=== PATIENT | female | born 1930 | race Caucasian/White ===

== ENCOUNTER 2017-01-28 12:09 | Inpatient (IN) | payer MEDICARE, OTHER ==
[2017-01-28] VITALS (15 sets, daily range): BP systolic 111–147; BP diastolic 69–84; PULSE 70–78; RESP 16–28; Ht 165.1 cm; Wt 68.4 kg
[~2017-01-28] VITALS: Ht 165.1 cm; Wt 68.4 kg
--- NOTE | 2017-01-28 12:18 | ERA ---
ER Documentation Chief Complaint Date/Time DATE: 01/28/17 TIME: 12:14 Chief Complaint HPI 86-year-old female, history of hypertension resents the ED via rescue ambulance complaining of chest pain as a code STEMI. Patient complaining of acute onset of pressure-like epigastric/substernal, nonradiating chest pain at 5 AM this morning with nausea and vomiting but no shortness of breath or diaphoresis. No relieving or exacerbating factors. Denies headache, visual changes, neck or back pain. No URI symptoms or cough. No fevers or chills. ROS All systems reviewed and are negative except as per history of present illness. Allergies Allergies: Coded Allergies: Penicillins (Verified Allergy, Unknown, 01/28/17) SWELLING PMhx/Soc Reviewed in chart. As per HPI. History of Surgery: No Anesthesia Reaction: No Hx 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 Disorder: No Hx Respiratory Disorders: No Hx Cardiac Disorders: Yes (Hypertension) Hx Psychiatric Problems: No Hx Miscellaneous Medical Probl: No Hx Alcohol Use: No Hx Substance Use: No Hx Tobacco Use: No FmHx No sudden cardiac or stroke Physical Exam Vitals Vital Signs Date Time Temp Pulse Resp B/P Pulse Ox O2 Delivery O2 Flow Rate FiO2 01/28/17 12:13 97.9 82 19 139/76 100 01/28/17 12:13 Nasal Cannula 2 Physical Exam Const: Alert, moderate to severe distress Head: Atraumatic Eyes: Normal Conjunctiva ENT: Normal External Ears, Nose and Mouth. Neck: Full range of motion.Nontender. No JVD. Resp: Clear to auscultation bilaterally Cardio: Regular rate and rhythm, no murmurs. No chest wall tenderness Abd: Soft, non tender, non distended. Normal bowel sounds Skin: No petechiae or rashes Back: No midline or flank tenderness Ext: No cyanosis, or edema Neur: Awake and alert. No focal deficit Psych: Normal Mood and Affect Result Diagram: 01/28/17 1215 01/28/17 1215 Results 24 hrs Laboratory Tests Test 01/28/17 12:15 White Blood Count 10.010^3/ul Red Blood Count 4.4310^6/ul Hemoglobin 13.3g/dl Hematocrit 40.7% Mean Corpuscular Volume 91.9fl Mean Corpuscular Hemoglobin 30.0pg Mean Corpuscular Hemoglobin Concent 32.7g/dl Red Cell Distribution Width 13.2% Platelet Count 92398^3/UL Mean Platelet Volume 10.2fl Neutrophils % 81.3% Lymphocytes % 13.6% Monocytes % 3.9% Eosinophils % 0.2% Basophils % 0.2% Nucleated Red Blood Cells % 0.0/100WBC Neutrophils # (Manual) 8.210^3/ul Lymphocytes # 1.410^3/ul Monocytes # 0.410^3/ul Eosinophils # 0.010^3/ul Basophils # 0.010^3/ul Nucleated Red Blood Cells # 0.010^3/ul Prothrombin Time 12.1Sec Prothrombin Time Ratio 0.9 INR International Normalized Ratio 0.90 Activated Partial Thromboplast Time 24.1Sec Sodium Level 137mmol/L Potassium Level 4.2mmol/L Chloride Level 105mmol/L Carbon Dioxide Level 21mmol/L Anion Gap 15 Blood Urea Nitrogen 17mg/dl Creatinine 0.88mg/dl Glucose Level 228mg/dl Hemoglobin A1c 6.9% Calcium Level 8.6mg/dl Creatine Kinase 259IU/L Creatine Kinase Index 5.1 Creatinine Kinase MB (Mass) 13.10ng/ml Troponin I 0.910ng/ml Triglycerides Level 172mg/dl Cholesterol Level 175mg/dl LDL Cholesterol, Calculated 94mg/dl HDL Cholesterol 47mg/dl Cholesterol/HDL Ratio 3.7RATIO EKG: Time: 12:07. Accelerated junctional rhythm. Ventricular rate 91. Normal NC QRS. ST segment elevations in leads II, III and aVF with reciprocal depressions in leads V1 through V4. No ectopy. EP Interpretation: Acute inferior ST segment elevation myocardial infarction. Procedures/MDM DOCUMENTS REVIEWED: ED nurse, EMS MEDICAL DECISION MAKIN-year-old female, history of hypertension resents the ED via rescue ambulance complaining of chest pain as a code STEMI. Prehospital EKG transmitted and reveals inferior ST segment elevations with reciprocal anterior depressions consistent with an acute ST segment elevation myocardial infarction. Code STEMI protocol initiated at 11:59. Case discussed with cardiology, 12:03. Repeat EKG in the emergency department confirms changes consistent with a acute inferior wall ST segment elevation myocardial infarction. Pulses equal in all pulses equal all extremities and doubt aortic dissection or pulmonary embolism. 12:10. at bedside. Patient transported to the cardiac Ballistics Expert Forensic at 12:25 for emergent PCI and post procedure will be admitted to ICU. Counseled patient and family regarding diagnosis, diagnostic results and plan for admission. Critical Care Time: 35 minutes Treatments/Evaluations: Close monitoring and treatment of unstable vital signs, cardiorespiratory, and neurologic status, while maintaining tight balance of fluid, respiratory, and cardiac interventions. This time includes discussing the case with the patient and the patient's family. This time does not include all procedures stated elsewhere in this record. This time also includesInterpretation of relevant clinical data including labs and imaging studies. This time includes examining and re-examining the patient. Additionally , this time also includes arranging care with Dig[facility] and admitting physician. CALLS/CONSULTS: Time 12:00, Dr. Mccain. CALLS/CONSULTS: Time 12:25, Dr. Tiwari. PATIENT CARE TRANSITIONED: Time: . Dr Tiwari. Departure Diagnosis: Primary Impression: Chest pain Qualified Code: R07.9 - Chest pain, unspecified type Additional Impression: ST elevation myocardial infarction (STEMI) Qualified Code: I21.11 - ST elevation myocardial infarction involving right coronary artery Condition: Critical JAKE BIGGS MD Jan 28, 2017 12:18
--- NOTE | 2017-01-28 12:24 | CONS ---
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 HTN, HL, who presented with chest pain which began at 5am today but has been on and off for 2 days per the daughter. She was found to have an inferior STEMI by EKG in the field and was urgently brought to [facility] for cardiac cath. The pt is having active chest pain. No bleeding issues in the past. Family is agreeable. per HPI Past Medical History per HPI Exam/Review of Systems Vital Signs Vitals Vital Signs Date Time Temp Pulse Resp B/P Pulse Ox O2 Delivery O2 Flow Rate FiO2 01/28/17 12:13 97.9 82 19 139/76 100 Exam Constitutional: alert, distress (moderate from chest pain ) Psych: anxiety Head: atraumatic, normocephalic Neck: jvd (8cm) Respiratory: crackles/rales, No clear to auscultation Cardiovascular: regular rate and rhythm, No edema, No systolic murmur Gastrointestinal: non-tender, soft 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: nl mental status, nl speech Results EKG: sinus, inferior STEMI with reciprocal inferolateral ST depression KOBE WHITESIDE Jan 28, 2017 12:24
[2017-01-28 12:25] LABS: BASOPHILS % 0.2 % (0.0-2.0); EOSINOPHILS % 0.2 % (0.0-7.0); HEMATOCRIT 40.7 % (37.0-47.0); HEMOGLOBIN 13.3 g/dl (12.0-16.0); LYMPHOCYTES # 1.4 10^3/ul (0.8-2.9); LYMPHOCYTES % 13.6 % (15.0-51.0); MEAN CORPUSCULAR HGB CONC 32.7 g/dl (32.0-37.0); MEAN CORPUSCULAR VOLUME 91.9 fl (82.0-101.0); MEAN PLATELET VOLUME 10.2 fl (7.4-10.4); MONOCYTE # 0.4 10^3/ul (0.3-0.9); MONOCYTES % 3.9 % (0.0-11.0); NEUTROPHILS % 81.3 % (39.0-77.0); PLATELET COUNT 250 10^3/UL (140-415); RED BLOOD COUNT 4.43 10^6/ul (4.20-5.40); RED CELL DISTRIBUTION WIDTH 13.2 % (11.5-14.5)
[2017-01-28] MEDS ORDERED: HEPARIN 1000 UNITS/NS (A-LINE) 1,000 ML ONE (12:26)
[2017-01-28] MEDS ORDERED: LIDOCAINE 1% (MDV) 20 ML INJ ONE (12:26)
[2017-01-28 12:34] LABS: INR 0.9; PROTIME 12.1 Sec (12.2-14.2); PT RATIO 0.9
[2017-01-28 12:35] LABS: PARTIAL THROMBOPLASTIN TIME 24.1 Sec (25.0-35.0)
[2017-01-28 12:36] LABS: CALCIUM 8.6 mg/dl (8.4-10.2); CREATININE 0.88 mg/dl (0.44-1.00); POTASSIUM 4.2 mmol/L (3.5-5.1)
[2017-01-28] MEDS ORDERED: CLOPIDOGREL 300 MG TAB ONE (12:41)
--- NOTE | 2017-01-28 12:42 | RADRPT ---
PROCEDURE: XR Chest. CLINICAL INDICATION: Chest pain. TECHNIQUE: Anterior chest x-ray. COMPARISON: None. FINDINGS: Pacer paddles overlie the chest. The lungs are clear. No pleural effusion identified. There is no evidence of pneumothorax. There is atherosclerotic calcification of the aorta. The cardiomediastinal silhouette is otherwise u nremarkable. The soft tissues are normal. Osseous structures are unremarkable. IMPRESSION: 1. No acute disease is seen in the chest. 2. Atherosclerotic calcification of the aorta. RPTAT: QQ .Rahul Capps MD, Date Time Electronically viewed and signed by .Rahul Capps MD, on 01/28/2017 12:41 .M/
[2017-01-28] MEDS ORDERED: MIDAZOLAM 1 MG/ML 2 ML INJ ONE (12:43)
[2017-01-28 12:50] LABS: TROPONIN-I 0.854 ng/ml (0.00-0.12)
[2017-01-28] MEDS ORDERED: NITROGLYCERIN (IC) 100 MCG/ML INJ ONE (12:59)
[2017-01-28 13:02] LABS: CK-MB 13.1 ng/ml (0.0-2.4)
[2017-01-28 13:03] LABS: TROPONIN-I 0.91 ng/ml (0.00-0.12)
[2017-01-28] MEDS ORDERED: VERAPAMIL 5 MG INJ ONE (13:05)
[2017-01-28] MEDS ORDERED: BIVALIRUDIN 250MG /NS 50 ML 50 ML IVPB ONE ×2 (13:20→14:01)
[2017-01-28] MEDS ORDERED: FENTAnyl 50 MCG/ML VIAL ONE (13:20)
[2017-01-28] MEDS ORDERED: EPTIFIBATIDE 20 ML ONE (13:20)
[2017-01-28] MEDS ORDERED: EPTIFIBATIDE 100 ML IV ONE (13:20)
[2017-01-28] MEDS: HOLD all METFORMIN and METFORMIN CONTAINING medications for 48 hours post procedure. Chec XX SCH (13:30)
[2017-01-28] MEDS ORDERED: morphine 2 MG INJ IV PRN (13:30)
--- NOTE | 2017-01-28 13:45 | OPR ---
Date/Time of Note Date/Time of Note DATE: 01/28/17 TIME: 13:31 Operative Report Free Text/Dictation Procedure Date: 01/28/2017 Procedures Performed: 1)Left heart catheterization with selective left and right coronary angiography. 2)Balloon angioplasty and stenting of the mid and proximal RCA. Pre-operative Diagnosis:inferior STEMI Post-operative Diagnosis:smae s/p PCI of RCA Indications: 86 yo F with a h/o DM, HTN, HL, presenting with 7 hours of chest pain and was found to have an inferior STEMI. Description of Procedure: Due to the emergent nature of the procedure consent could not be obtained. The patient was brought to the cardiac catheterization lab. The procedure site was prepped and draped in usual manner. The patient was premedicated with versed 1 mg and . 5 mL lidocaine was injected into the right groin. Next using the Seldinger technique, the 6 indian sheath was inserted into the right femoral artery. Next using the JL4 and JR4 guide, selective angiography of the left and right coronary arteries were obtained. The decision was made to proceed with PCI of the RCA as this was the culprit lesion. A 6 indian guide was advanced and engaged into the right coronary artery. After appropriate anticoagulation and antiplatelets were given, the PT 2 LS angioplasty wire was advanced past the lesion (unsuccessful with BMW). Next the 2.0 X 12 balloon was used to dilate the lesion times 2 but there was a more distal lesion noted and so this was also dilated to establish ABRAHAM 3 flow. Distal slow flow was noted due to thrombus. The pt was having bradycardia and hypotension and was given IVF and started on dopamine. Subsequently, the [place] 2.75 x 15 stent was advanced to the more distal lesion and deployed at nominal pressure. The balloon was used to dilate the proximal lesion again. Then the Eleazar 2.75 x 18 stent was advanced to the proximal lesion and deployed at nominal pressure. Repeat angiography revealed ABRAHAM 2 flow from distal embolization. Integrilin was started. Next IC NTG and verapamil were given and repeat angiography revealed ABRAHAM 3 flow to the PDA and ABRAHAM 2 flow in the mid to distal PLV due to residual microvascular thrombus. At this point the decision was made to avoid post dilation to not worsen distal embolization. The pt was asymptomatic, had resolution of her ST elevation and had good distal vessel flow. Next all equipment was removed and hemostasis was achieved by Perclose after verifying common femoral insertion of the sheath. Findings: Anatomy/Hemodynamics: Left main: normal LAD: luminal irregularities with distal 100% HUMAN RESOURCES CLERK and left-left collaterals ( will be treated medically) Diagonal:luminal irregularities Circumflex:luminal irregularities Obtuse marginal: small vessel with prox 80% (will be treated medically) RCA: prox 100% (after the proximal lesion was dilated, there was also a mid 100% ) LV angiography:not done Contrast used: 75 mL Fluoroscopy time:6.4 min Medications used: Versed 1mg Fentanyl 25 Angiomax bolus plus drip given ASA in ED plavix 600 mg intergrilin bolus and drip dopamine IC NTG and verapamil Equipment used: 6 indian JR4 guide PT 2 LS angioplasty wire 2 x 12 balloon Eleazar 2.75 x 15 drug eluting stent (mid) Eleazar 2.75 x 18 drug eluting stent (proximal) Assessment: Inferior STEMI s/p PCI of occluded prox RCA and mid RCA Distal microembolization with good final results but ABRAHAM 2 flow to distal PLV for which pt will be maintained on integrilin Residual distal LAD HUMAN RESOURCES CLERK and small vessel disease of the OM which will be treated medically Hypotension/bradycardia: secondary to reestablishing RCA flow Plan: -transfer to ICU for observation overnight -wean off dopamine drip -angiomax x 4 hours -integrilin x 8 hours -ASA indefinitely -plavix 75mg daily for 1 year -KOBE Garcia Jan 28, 2017 13:45
[2017-01-28] MEDS ORDERED: ONDANSETRON 4 MG INJ ONE (13:55)
[2017-01-28] MEDS ORDERED: ONDANSETRON 4 MG INJ IV PRN (14:00)
[2017-01-28] MEDS ORDERED: BIVALIRUDIN 250MG /NS 50 ML 50 ML IV SCH (15:00)
[2017-01-28] MEDS ORDERED: EPTIFIBATIDE 100 ML IV SCH (15:00)
--- NOTE | 2017-01-28 16:54 | HP ---
Date/Time of Note Date/Time of Note DATE: 01/28/17 TIME: 16:52 Assessment/Plan VTE Prophylaxis VTE Prophylaxis Intervention: SCD's Lines/Catheters IV Catheter Type (from Nrsg): Peripheral IV Urinary Cath still in place: No Assessment/Plan Assessment/Plan 86 yo F with pmhx DM, HTN, HL presented with chest pain, found to be having STEMI. Pt sp PCI 9.10. #CAD/STEMI with PCI 9.10 -cont DAPT -start statin -check lipids, check a1c -BP control #HTN/DM/HL: home meds list not available -start atorva 40 -check a1c, SSI ordered NPO as per cards DVT prophx in AM (pt still on antiplatelet infusions) HPI/ROS Admit Date/Time Admit Date/Time Hx of Present Illness CC sp STEMI HPI 86 yo F with pmhx DM2, HTN, HL brought to ER for chest pain found to be having inferolateral STEMI. Pt taken urgently to lab systems analyst, found to have 100% occlusion of proximal RCA for which PCI was performed. Pt seen in ICU post procedure, she was resting comfortably. ROS Psychological: anxiety PMH/Family/Social Past Medical History DM2, HTN, HL Social History lives in the community Smoking Status: Never smoker Exam/Review of Systems Vital Signs Vitals Vital Signs Date Time Temp Pulse Resp B/P Pulse Ox O2 Delivery O2 Flow Rate FiO2 01/28/17 15:30 70 20 129/84 100 01/28/17 15:00 Nasal Cannula 2.0 01/28/17 14:00 98.1 Exam Exam nad EOMI MMM no mrg lungs clear abd soft no rashes labs reviewed Labs Result Diagram: 01/28/17 1215 01/28/17 1215 Medications Medications Current Medications Miscellaneous Information (* Miscellaneous Pharmacy Order) HOLD all METFORMIN ... ONCE XX ; Start 01/28/17 at 13:30; Stop 01/30/17 at 13:29 Morphine Sulfate (morphine) 2 mg Q2H PRN IV FOR NON CARDIAC PAIN (4-10); Start 01/28/17 at 13:30 Clopidogrel Bisulfate (plaVIX) 75 mg DAILY PO ; Start 01/29/17 at 09:00 Aspirin (Aspirin) 81 mg DAILY PO ; Start 01/29/17 at 09:00 Ondansetron HCl (Zofran Inj) 4 mg Q4 PRN IV NAUSEA; Start 01/28/17 at 14:00 TONEY MORALEZ MD Jan 28, 2017 16:54
[2017-01-28] MEDS: INSULIN ASPART [NOVOLOG] 3 ML PEN SC SCH ×2 (17:00→20:38)
[2017-01-28 17:23] LABS: CHOL/HDL RATIO 3.7 RATIO
[2017-01-28] MEDS ORDERED: GLUCOSE GEL 15 GRAM TUBE BUCCAL PRN (17:30)
[2017-01-28] MEDS ORDERED: GLUCOSE GEL 15 GRAM TUBE PO PRN ×2 (17:30)
[2017-01-28] MEDS ORDERED: GLUCAGON 1 MG INJ IM PRN (17:30)
[2017-01-28] MEDS ORDERED: DEXTROSE 50% 50 ML SYRINGE IV PRN ×2 (17:30)
[2017-01-28] MEDS: ATORVASTATIN 40 MG TAB PO SCH (20:40)
[2017-01-29] VITALS (20 sets, daily range): BP systolic 98–142; BP diastolic 58–100; PULSE 72–93; RESP 14–26
[2017-01-29] MEDS: INSULIN ASPART [NOVOLOG] 3 ML PEN SC SCH ×5 (01:00→21:29)
[2017-01-29] MEDS ORDERED: ACCU-CHEK XX SCH (02:00)
[2017-01-29] MEDS: ASPIRIN 81 MG TAB PO SCH (08:42)
[2017-01-29] MEDS: CLOPIDOGREL 75 MG TAB PO SCH (08:42)
--- NOTE | 2017-01-29 09:58 | PN ---
Date/Time of Note Date/Time of Note DATE: 01/29/17 TIME: 09:34 Assessment/Plan VTE Prophylaxis VTE Prophylaxis Intervention: SCD's Lines/Catheters IV [facility] Type [facility]from [facility] Saline Lock Urinary Cath still in place: No Assessment/Plan Assessment/Plan 86 yo female with: 1. STEMI, CAD s/p with PCI 01/28 with placement of 2 stents mid and prox RCA, appreciate cardiology recs, stable today Continue current antiplatelets, statins,. F/u 2D echo results Transfer to Tele if Ok with Cardiology. 2. Hypertension: Bblock +/- ARB or SANKET i pif OK with cardio and BP tolerates 3. Diabetes Mellitus: A1C 6.9, on SSI, will resume outpatient meds at discharge. 4. Hyperlipidemia: continue statins therapy Prophylaxis: Pepcid for DVT ppx and scds for DVT ppx Disposition: Transfer to Tele if OK with Cardiology, f/u labs today Subjective 24 Hr Interval Summary Free Text/Dictation Patient doing well, stable and no arrhythmias S/p STEMI and 2x RCA stents placed yesterday Exam/Review of Systems Vital Signs Vitals Vital Signs Date Time Temp Pulse Resp B/P Pulse Ox O2 Delivery O2 Flow Rate FiO2 01/29/17 07:00 73 25 135/66 96 Nasal Cannula 2.0 01/29/17 04:00 98.0 Intake and Output 01/28/17 01/28/17 01/29/17 15:00 23:00 07:00 Intake Total 0 ml 240 ml 340 ml Output Total 250 ml 500 ml Balance 0 ml -10 ml -160 ml Exam Constitutional: alert, oriented, other (primarily Finnish speaking ), well developed Respiratory: clear to auscultation, normal air movement Cardiovascular: nl pulses, regular rate and rhythm Gastrointestinal: non-tender, soft Musculoskeletal: nl extremities to inspection Extremities: normal pulses, other (no edema, clubbing or cyanosis ) 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: BOTTLE SORTER II-XII intact, nl mental status, nl speech, nl strength Results Result Diagram: 01/28/17 1215 01/28/17 1215 Results 24 hrs Laboratory Tests Test 01/28/17 12:15 01/28/17 16:41 01/28/17 20:37 01/29/17 01:16 White Blood Count 10.0 Red Blood Count 4.43 Hemoglobin 13.3 Hematocrit 40.7 Mean Corpuscular Volume 91.9 Mean Corpuscular Hemoglobin 30.0 Mean Corpuscular Hemoglobin Concent 32.7 Red Cell Distribution Width 13.2 Platelet Count 250 Mean Platelet Volume 10.2 Neutrophils % 81.3 H Lymphocytes % 13.6 L Monocytes % 3.9 Eosinophils % 0.2 Basophils % 0.2 Nucleated Red Blood Cells % 0.0 Neutrophils # (Manual) 8.2 H Lymphocytes # 1.4 Monocytes # 0.4 Eosinophils # 0.0 Basophils # 0.0 Nucleated Red Blood Cells # 0.0 Prothrombin Time 12.1 L Prothrombin Time Ratio 0.9 INR International Normalized Ratio 0.90 Activated Partial Thromboplast Time 24.1 L Sodium Level 137 Potassium Level 4.2 Chloride Level 105 Carbon Dioxide Level 21 Anion Gap 15 Blood Urea Nitrogen 17 Creatinine 0.88 Glucose Level 228 H Hemoglobin A1c 6.9 H Calcium Level 8.6 Creatine Kinase 259 H 1585 #H Creatine Kinase Index 5.1 7.4 Creatinine Kinase MB (Mass) 13.10 H 118.00 H Troponin I 0.910 *H 57.000 *H Triglycerides Level 172 H Cholesterol Level 175 LDL Cholesterol, Calculated 94 HDL Cholesterol 47 Cholesterol/HDL Ratio 3.7 Bedside Glucose 151 131 Test 01/29/17 02:14 01/29/17 07:54 Bedside Glucose 162 149 Medications Medications Current Medications Miscellaneous Information (* Miscellaneous Pharmacy Order) HOLD all METFORMIN ... ONCE XX ; Start 01/28/17 at 13:30; Stop 01/30/17 at 13:29 Morphine Sulfate (morphine) 2 mg Q2H PRN IV FOR NON CARDIAC PAIN (4-10); Start 01/28/17 at 13:30 Clopidogrel Bisulfate (plaVIX) 75 mg DAILY PO Last administered on 01/29/17 08 :42; Admin Dose 75 MG; Start 01/29/17 at 09:00 Aspirin (Aspirin) 81 mg DAILY PO Last administered on 01/29/17 08:42; Admin Dose 81 MG; Start 01/29/17 at 09:00 Ondansetron HCl (Zofran Inj) 4 mg Q4 PRN IV NAUSEA; Start 01/28/17 at 14:00 Atorvastatin Calcium (Lipitor) 40 mg HS PO Last administered on 01/28/17 20:40 ; Admin Dose 40 MG; Start 01/28/17 at 21:00 Miscellaneous Information 1 ea NOTE XX ; Start 01/28/17 at 17:30 Glucose (Glutose) 15 gm Q15M PRN PO DECREASED GLUCOSE; Start 01/28/17 at 17:30 Glucose (Glutose) 22.5 gm Q15M PRN PO DECREASED GLUCOSE; Start 01/28/17 at 17: 30 Dextrose (D50w Syringe) 25 ml Q15M PRN IV DECREASED GLUCOSE; Start 01/28/17 at 17:30 Dextrose (D50w Syringe) 50 ml Q15M PRN IV DECREASED GLUCOSE; Start 01/28/17 at 17:30 Glucagon (Glucagen) 1 mg Q15M PRN IM DECREASED GLUCOSE; Start 01/28/17 at 17:30 Glucose (Glutose) 15 gm Q15M PRN BUCCAL DECREASED GLUCOSE; Start 01/28/17 at 17 :30 Diagnostic Test (Pha) (Accu-Chek) 1 ea 02 XX ; Start 01/30/17 at 02:00 DAVONTE MANCINI Jan 29, 2017 09:44
[2017-01-29] MEDS ORDERED: FUROSEMIDE 20 MG INJ IV ONE (10:30)
--- NOTE | 2017-01-29 10:37 | CONS ---
Date/Time of Note Date/Time of Note DATE: 01/29/17 TIME: 10:19 Assessment/Plan Assessment/Plan Chief Complaint/Hosp Course Inferior STEMI: s/p PCI of occluded prox RCA and mid RCA 01/28. Complicated by distal microembolization with good final results but ABRAHAM 2 flow to distal PLV as well as transient need for dopamine drip. Was on intergilin but was stopped due to groin hematoma. Pt is asymptomatic and hemodynamically stable off dopamine. Acute systolic heart failure: Mild CHF by exam post WI. 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 and small vessel disease of the OM which will be treated medically Transient hypotension/bradycardia: secondary to reestablishing RCA flow, now stable off dopamine DM HTN HL -ASA, plavix -lipitor -start coreg 3.125mg PO BID -start ACEI/ARB if renal function stable -lasix 20mg IV x 1 -f/u echo -goal for d/c should be Sunday Problems: Consultation Date/Type/Reason Admit Date/Time Jan 28, 2017 at 13:28 Initial Consult Date 01/28/17 Type of Consultation: Cardiology Referring Provider: JAKE BIGGS MD 24 HR Interval Summary Free Text/Dictation Overnight was noted to have a hematoma in her right groin so angiomax and integrilin were stopped. The hematoma was reduced with manual pressure. She is now off dopamine and remains hemodynamically stable. No complaints this am. No chest pain or SOB. No groin pain. No arrhythmias on tele. Exam/Review of Systems Vital Signs Vitals Vital Signs Date Time Temp Pulse Resp B/P Pulse Ox O2 Delivery O2 Flow Rate FiO2 01/29/17 08:00 78 01/29/17 07:00 25 135/66 96 Nasal Cannula 2.0 01/29/17 04:00 98.0 Intake and Output 01/28/17 01/28/17 01/29/17 15:00 23:00 07:00 Intake Total 0 ml 240 ml 340 ml Output Total 250 ml 500 ml Balance 0 ml -10 ml -160 ml Exam Constitutional: alert, oriented Psych: nl mood/affect, no complaints Head: atraumatic, normocephalic Neck: jvd (9cm) Respiratory: crackles/rales (mild ), No clear to auscultation Cardiovascular: regular rate and rhythm, No edema, No systolic murmur Gastrointestinal: non-tender, soft, No distended Extremities: other (right groin without hematoma or bruit ) 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: nl mental status, nl speech Results Result Diagram: 01/28/17 1215 01/28/17 1215 Results 24 hrs Laboratory Tests Test 01/28/17 12:15 01/28/17 16:41 01/28/17 20:37 01/29/17 01:16 White Blood Count 10.0 Red Blood Count 4.43 Hemoglobin 13.3 Hematocrit 40.7 Mean Corpuscular Volume 91.9 Mean Corpuscular Hemoglobin 30.0 Mean Corpuscular Hemoglobin Concent 32.7 Red Cell Distribution Width 13.2 Platelet Count 250 Mean Platelet Volume 10.2 Neutrophils % 81.3 H Lymphocytes % 13.6 L Monocytes % 3.9 Eosinophils % 0.2 Basophils % 0.2 Nucleated Red Blood Cells % 0.0 Neutrophils # (Manual) 8.2 H Lymphocytes # 1.4 Monocytes # 0.4 Eosinophils # 0.0 Basophils # 0.0 Nucleated Red Blood Cells # 0.0 Prothrombin Time 12.1 L Prothrombin Time Ratio 0.9 INR International Normalized Ratio 0.90 Activated Partial Thromboplast Time 24.1 L Sodium Level 137 Potassium Level 4.2 Chloride Level 105 Carbon Dioxide Level 21 Anion Gap 15 Blood Urea Nitrogen 17 Creatinine 0.88 Glucose Level 228 H Hemoglobin A1c 6.9 H Calcium Level 8.6 Creatine Kinase 259 H 1585 #H Creatine Kinase Index 5.1 7.4 Creatinine Kinase MB (Mass) 13.10 H 118.00 H Troponin I 0.910 *H 57.000 *H Triglycerides Level 172 H Cholesterol Level 175 LDL Cholesterol, Calculated 94 HDL Cholesterol 47 Cholesterol/HDL Ratio 3.7 Bedside Glucose 151 131 Test 01/29/17 02:14 01/29/17 07:54 Bedside Glucose 162 149 Medications Medications Current Medications Miscellaneous Information (* Miscellaneous Pharmacy Order) HOLD all METFORMIN ... ONCE XX ; Start 01/28/17 at 13:30; Stop 01/30/17 at 13:29 Morphine Sulfate (morphine) 2 mg Q2H PRN IV FOR NON CARDIAC PAIN (4-10); Start 01/28/17 at 13:30 Clopidogrel Bisulfate (plaVIX) 75 mg DAILY PO Last administered on 01/29/17t 08 :42; Admin Dose 75 MG; Start 01/29/17 at 09:00 Aspirin (Aspirin) 81 mg DAILY PO Last administered on 01/29/17 08:42; Admin Dose 81 MG; Start 01/29/17 at 09:00 Ondansetron HCl (Zofran Inj) 4 mg Q4 PRN IV NAUSEA; Start 01/28/17 at 14:00 Atorvastatin Calcium (Lipitor) 40 mg HS PO Last administered on 01/28/17 20:40 ; Admin Dose 40 MG; Start 01/28/17 at 21:00 Miscellaneous Information 1 ea NOTE XX ; Start 01/28/17 at 17:30 Glucose (Glutose) 15 gm Q15M PRN PO DECREASED GLUCOSE; Start 01/28/17 at 17:30 Glucose (Glutose) 22.5 gm Q15M PRN PO DECREASED GLUCOSE; Start 01/28/17 at 17: 30 Dextrose (D50w Syringe) 25 ml Q15M PRN IV DECREASED GLUCOSE; Start 01/28/17 at 17:30 Dextrose (D50w Syringe) 50 ml Q15M PRN IV DECREASED GLUCOSE; Start 01/28/17 at 17:30 Glucagon (Glucagen) 1 mg Q15M PRN IM DECREASED GLUCOSE; Start 01/28/17 at 17:30 Glucose (Glutose) 15 gm Q15M PRN BUCCAL DECREASED GLUCOSE; Start 01/28/17 at 17 :30 Diagnostic Test (Pha) (Accu-Chek) 1 ea 02 XX ; Start 01/30/17 at 02:00 Famotidine (Pepcid) 20 mg DAILY PO ; Start 01/29/17 at 10:00 KOBE WHITESIDE Jan 29, 2017 10:36
[2017-01-29] MEDS: FAMOTIDINE 20 MG TAB PO SCH (11:09)
[2017-01-29 11:51] LABS: BASOPHILS % 0.3 % (0.0-2.0); EOSINOPHILS # 0.1 10^3/ul (0.0-0.5); EOSINOPHILS % 0.5 % (0.0-7.0); HEMATOCRIT 38.6 % (37.0-47.0); LYMPHOCYTES # 1.4 10^3/ul (0.8-2.9); MEAN CORPUSCULAR HEMOGLOBIN 29.2 pg (29.0-33.0); MEAN CORPUSCULAR HGB CONC 31.1 g/dl (32.0-37.0); MEAN CORPUSCULAR VOLUME 93.9 fl (82.0-101.0); MEAN PLATELET VOLUME 10.6 fl (7.4-10.4); MONOCYTES % 10.2 % (0.0-11.0); NEUTROPHILS % 73.6 % (39.0-77.0); PLATELET COUNT 215 10^3/UL (140-415); RED BLOOD COUNT 4.11 10^6/ul (4.20-5.40); RED CELL DISTRIBUTION WIDTH 13.7 % (11.5-14.5); WHITE BLOOD COUNT 9.4 10^3/ul (4.8-10.8)
[2017-01-29 12:00] LABS: CALCIUM 8.5 mg/dl (8.4-10.2); MAGNESIUM 2.1 mg/dl (1.7-2.5); POTASSIUM 3.9 mmol/L (3.5-5.1)
--- NOTE | 2017-01-29 12:26 | RADRPT ---
Echocardiogram Report Patient Name: SHERIE GONZALEZ Gender: Female Date: 1930 Study Date: 29-Jan-2017 Reinforcement Maker: Branden Loomis RDCS Location: 119 Ref. Physician: KOBE WHITESIDE Quality: Adequate Procedures: Transthoracic echocardiogram with complete 2D, M-Mode, and doppler examination. Indications: inferior STEMI. 2D/M Mode Doppler Measurement Value Normal Ranges Measurement Value Normal Ranges LVIDd 2D 4.4 3.5 - 5.6 cm AV Peak Kamari 1.3 m/sec LVIDs 2D 2.7 2.1 - 4.1 cm AV Peak PG 6.5 mmHg LVPWd 2D 0.9 0.6 - 1.1 cm LVOT Peak Kamari 1.1 m/sec IVSd 2D 0.9 0.6 - 1.1 cm LVOT Peak PG 5.1 mmHg AoR Diam 2D 2.3 2.0 - 3.7 cm MV E Peak Kamari 0.7 m/sec EDV 2D 87.5 cm3 MV A Peak Kamari 1.0 m/sec ESV 2D 18.8 cm3 MV E/A 0.7 LA Dimen 2D 3.1 2.3 - 4.0 cm MV Decel Time 150 msec MV Decel [place] 5 MV E/A 0.7 TR Peak Kamari 1.7 m/sec TR Peak PG 12.0 mmHg RVSP 15.0 mmHg Findings Left Ventricle: Normal left ventricular systolic function. Normal left ventricular cavity size. Normal left ventricular wall thickness. Ejection fraction is visually estimated at 55 %. Tissue Doppler/Mitral Doppler indices are consistent with impaired relaxation (Stage I diastolic dysfunction). Resting Segmental Wall Motion Analysis: Mild hypokinesis of the inferior and inferolateral graf. Right Ventricle: Normal right ventricular size. Normal right ventricular systolic function. Left Atrium: The left atrium is normal in size. Right Atrium: The right atrium is normal in size. Mitral Valve: Mild mitral leaflet calcification. Mild mitral annular calcification. Mild mitral valve regurgitation. Aortic Valve: No significant aortic stenosis or insufficiency. Aortic sclerosis without stenosis. Tricuspid Valve: Normal appearance of the tricuspid valve. Estimated peak PA systolic pressure 20 mmHg. There is trace tricuspid regurgitation. Pulmonic Valve: Normal pulmonic valve appearance. Pericardium: Normal pericardium with no significant pericardial effusion. Aorta: Normal aortic root. IVC: Dilated IVC with respiratory collapse consistent with elevated right atrial pressure. Conclusions 1.Normal left ventricular systolic function. Normal left ventricular cavity size. Normal left ventricular wall thickness. Ejection fraction is visually estimated at 55 %. Tissue Doppler/Mitral Doppler indices are consistent with impaired relaxation (Stage I diastolic dysfunction). 2.Mild hypokinesis of the inferior and inferolateral graf. 3.Mild mitral valve regurgitation. 4.Estimated peak PA systolic pressure 20 mmHg based on RA pressure of 8 mmHg. Electronically Signed By: Kobe Whiteside 29-Jan-2017 12:26:36 -0700 Patient Name: SHERIE GONZALEZ Study Date: 29-Jan-2017 [id number]
[2017-01-29] MEDS: HOLD all METFORMIN and METFORMIN CONTAINING medications for 48 hours post procedure. Chec XX SCH (13:30)
[2017-01-29] MEDS: ATORVASTATIN 40 MG TAB PO SCH (21:25)
[2017-01-30] VITALS (11 sets, daily range): BP systolic 126–162; BP diastolic 58–77; PULSE 69–95; RESP 19–20
[2017-01-30] MEDS: ACCU-CHEK XX SCH (03:23)
[2017-01-30 08:10] LABS: ALBUMIN 3.4 g/dl (3.3-4.9); ALBUMIN/GLOBULIN RATIO 1.21; BILIRUBIN,INDIRECT 0.2 mg/dl (0-1.1); BILIRUBIN,TOTAL 0.2 mg/dl (0.2-1.3); CALCIUM 8.5 mg/dl (8.4-10.2); CREATININE 1.13 mg/dl (0.44-1.00); POTASSIUM 3.9 mmol/L (3.5-5.1); TOTAL PROTEIN 6.2 g/dl (6.1-8.1)
[2017-01-30] MEDS: INSULIN ASPART [NOVOLOG] 3 ML PEN SC SCH ×4 (08:23→20:40)
[2017-01-30] MEDS: FAMOTIDINE 20 MG TAB PO SCH (08:25)
[2017-01-30] MEDS: CLOPIDOGREL 75 MG TAB PO SCH (08:25)
[2017-01-30] MEDS: ASPIRIN 81 MG TAB PO SCH (08:25)
--- NOTE | 2017-01-30 14:53 | PN ---
Date/Time of Note Date/Time of Note DATE: 01/30/17 TIME: 14:29 Assessment/Plan VTE Prophylaxis VTE Prophylaxis Intervention: SCD's Lines/Catheters IV [facility] Saline Lock Urinary Cath still in place: No Assessment/Plan Assessment/Plan 86 yo female with: 1. STEMI, CAD s/p with PCI 01/28 with placement of 2 stents mid and prox RCA, appreciate cardiology recs, remains stable. Continue current antiplatelets, statins, and beta blockers. Reserved ejection fraction on 2D echo results Discharge planning within 24 hours per cardiology 2. Hypertension: Continue carvedilol, may benefit form addition of SANKET i or ARB. 3. Diabetes Mellitus: A1C 6.9, on SSI, will resume outpatient meds at discharge. 4. Hyperlipidemia: continue statins therapy 5. Mild acute kidney injury, monitor creatinine and encourage p.o. fluids. Check BMP in morning Prophylaxis: Pepcid for DVT ppx and scds for DVT ppx Disposition: Discharge plan in the next 24 hours if patient stable. Subjective 24 Hr Interval Summary Free Text/Dictation Patient doing well, no chest pain. Blood pressure tolerating carvedilol well. 2D echocardiogram with preserved ejection fraction. Discharge planning tomorrow per cardiology. Exam/Review of Systems Vital Signs Vitals Vital Signs Date Time Temp Pulse Resp B/P Pulse Ox O2 Delivery O2 Flow Rate FiO2 01/30/17 12:30 83 01/30/17 11:30 98.0 19 126/58 94 01/29/17 13:00 Room Air 01/29/17 07:00 2.0 Intake and Output 01/29/17 01/29/17 01/30/17 15:00 23:00 07:00 Intake Total 240 ml 600 ml 400 ml Output Total 550 ml Balance -310 ml 600 ml 400 ml Exam Constitutional: alert, oriented, well developed Respiratory: clear to auscultation, normal air movement Cardiovascular: nl pulses, regular rate and rhythm Gastrointestinal: non-tender, soft Musculoskeletal: nl extremities to inspection Extremities: normal pulses 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: 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 II-XII intact, nl mental status, nl speech, nl strength Results Result Diagram: 01/29/17 1131 01/30/17 0632 Results 24 hrs Laboratory Tests Test 01/29/17 17:50 01/29/17 21:21 01/30/17 03:14 01/30/17 06:32 Bedside Glucose 187 216 165 Sodium Level 141 Potassium Level 3.9 Chloride Level 105 Carbon Dioxide Level 31 Anion Gap 9 Blood Urea Nitrogen 14 Creatinine 1.13 H Glucose Level 152 Calcium Level 8.5 Magnesium Level 2.1 Total Bilirubin 0.2 Direct Bilirubin 0.00 Indirect Bilirubin 0.2 Aspartate Amino Transf (AST/SGOT) 89 H Alanine Aminotransferase (ALT/SGPT) 79 H Alkaline Phosphatase 89 Total Protein 6.2 Albumin 3.4 Globulin 2.80 Albumin/Globulin Ratio 1.21 Test 01/30/17 08:17 01/30/17 11:38 Bedside Glucose 158 140 Medications Medications Current Medications Morphine Sulfate (morphine) 2 mg Q2H PRN IV FOR NON CARDIAC PAIN (4-10); Start 01/28/17 at 13:30 Clopidogrel Bisulfate (plaVIX) 75 mg DAILY PO Last administered on 01/30/17 08 :25; Admin Dose 75 MG; Start 01/29/17 at 09:00 Aspirin (Aspirin) 81 mg DAILY PO Last administered on 01/30/17 08:25; Admin Dose 81 MG; Start 01/29/17 at 09:00 Ondansetron HCl (Zofran Inj) 4 mg Q4 PRN IV NAUSEA; Start 01/28/17 at 14:00 Atorvastatin Calcium (Lipitor) 40 mg HS PO Last administered on 01/29/17 21:25 ; Admin Dose 40 MG; Start 01/28/17 at 21:00 Miscellaneous Information 1 ea NOTE XX ; Start 01/28/17 at 17:30 Glucose (Glutose) 15 gm Q15M PRN PO DECREASED GLUCOSE; Start 01/28/17 at 17:30 Glucose (Glutose) 22.5 gm Q15M PRN PO DECREASED GLUCOSE; Start 01/28/17 at 17: 30 Dextrose (D50w Syringe) 25 ml Q15M PRN IV DECREASED GLUCOSE; Start 01/28/17 at 17:30 Dextrose (D50w Syringe) 50 ml Q15M PRN IV DECREASED GLUCOSE; Start 01/28/17 at 17:30 Glucagon (Glucagen) 1 mg Q15M PRN IM DECREASED GLUCOSE; Start 01/28/17 at 17:30 Glucose (Glutose) 15 gm Q15M PRN BUCCAL DECREASED GLUCOSE; Start 01/28/17 at 17 :30 Diagnostic Test (Pha) (Accu-Chek) 1 ea 02 XX Last administered on 01/30/17 03: 23; Admin Dose 1 EA; Start 01/30/17 at 02:00 Famotidine (Pepcid) 20 mg DAILY PO Last administered on 01/30/17 08:25; Admin Dose 20 MG; Start 01/29/17 at 10:00 Carvedilol (Coreg) 3.125 mg BID PO Last administered on 01/30/17 08:30; Admin Dose 3.125 MG; Start 01/29/17 at 10:30 DAVONTE MANCINI Jan 30, 2017 14:39
[2017-01-30] MEDS: ATORVASTATIN 40 MG TAB PO SCH (20:34)
--- NOTE | 2017-01-30 20:53 | CONS ---
Date/Time of Note Date/Time of Note DATE: 01/30/17 TIME: 20:50 Assessment/Plan Assessment/Plan Chief Complaint/Hosp Course Inferior STEMI: s/p PCI of occluded prox RCA and mid RCA 01/28. Complicated by distal microembolization with good final results but ABRAHAM 2 flow to distal PLV as well as transient need for dopamine drip. Was on intergilin but was stopped due to groin hematoma. Pt is asymptomatic and hemodynamically stable off dopamine. 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 No chest pain or shortness of breath. Detailed Summary Additional Comments 14 point review of systems without changes Exam/Review of Systems Vital Signs Vitals Vital Signs Date Time Temp Pulse Resp B/P Pulse Ox O2 Delivery O2 Flow Rate FiO2 01/30/17 16:30 83 01/30/17 15:49 98.3 19 138/65 96 01/29/17 13:00 Room Air 01/29/17 07:00 2.0 Intake and Output 01/29/17 01/29/17 01/30/17 15:00 23:00 07:00 Intake Total 240 ml 600 ml 400 ml Output Total 550 ml Balance -310 ml 600 ml 400 ml Exam Constitutional: alert, oriented Psych: nl mood/affect, no complaints Head: atraumatic, normocephalic Neck: jvd (9cm) Respiratory: crackles/rales (mild ), No clear to auscultation Cardiovascular: regular rate and rhythm, No edema, No systolic murmur Gastrointestinal: non-tender, soft, No distended Extremities: other (right groin without hematoma or bruit ) 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: nl mental status, nl speech Results Result Diagram: 01/29/17 1131 01/30/17 0632 Results 24 hrs Laboratory Tests Test 01/29/17 21:21 01/30/17 03:14 01/30/17 06:32 01/30/17 08:17 Bedside Glucose 216 165 158 Sodium Level 141 Potassium Level 3.9 Chloride Level 105 Carbon Dioxide Level 31 Anion Gap 9 Blood Urea Nitrogen 14 Creatinine 1.13 H Glucose Level 152 Calcium Level 8.5 Magnesium Level 2.1 Total Bilirubin 0.2 Direct Bilirubin 0.00 Indirect Bilirubin 0.2 Aspartate Amino Transf (AST/SGOT) 89 H Alanine Aminotransferase (ALT/SGPT) 79 H Alkaline Phosphatase 89 Total Protein 6.2 Albumin 3.4 Globulin 2.80 Albumin/Globulin Ratio 1.21 Test 01/30/17 11:38 01/30/17 17:26 01/30/17 20:38 Bedside Glucose 140 141 257 H Medications Medications Current Medications Morphine Sulfate (morphine) 2 mg Q2H PRN IV FOR NON CARDIAC PAIN (4-10); Start 01/28/17 at 13:30 Clopidogrel Bisulfate (plaVIX) 75 mg DAILY PO Last administered on 01/30/17 08 :25; Admin Dose 75 MG; Start 01/29/17 at 09:00 Aspirin (Aspirin) 81 mg DAILY PO Last administered on 01/30/17 08:25; Admin Dose 81 MG; Start 01/29/17 at 09:00 Ondansetron HCl (Zofran Inj) 4 mg Q4 PRN IV NAUSEA; Start 01/28/17 at 14:00 Atorvastatin Calcium (Lipitor) 40 mg HS PO Last administered on 01/30/17 20:34 ; Admin Dose 40 MG; Start 01/28/17 at 21:00 Miscellaneous Information 1 ea NOTE XX ; Start 01/28/17 at 17:30 Glucose (Glutose) 15 gm Q15M PRN PO DECREASED GLUCOSE; Start 01/28/17 at 17:30 Glucose (Glutose) 22.5 gm Q15M PRN PO DECREASED GLUCOSE; Start 01/28/17 at 17: 30 Dextrose (D50w Syringe) 25 ml Q15M PRN IV DECREASED GLUCOSE; Start 01/28/17 at 17:30 Dextrose (D50w Syringe) 50 ml Q15M PRN IV DECREASED GLUCOSE; Start 9/10/17 at 17:30 Glucagon (Glucagen) 1 mg Q15M PRN IM DECREASED GLUCOSE; Start 01/28/17 at 17:30 Glucose (Glutose) 15 gm Q15M PRN BUCCAL DECREASED GLUCOSE; Start 01/28/17 at 17 :30 Diagnostic Test (Pha) (Accu-Chek) 1 ea 02 XX Last administered on 01/30/17 03: 23; Admin Dose 1 EA; Start 01/30/17 at 02:00 Famotidine (Pepcid) 20 mg DAILY PO Last administered on 01/30/17 08:25; Admin Dose 20 MG; Start 01/29/17 at 10:00 Carvedilol (Coreg) 3.125 mg BID PO Last administered on 01/30/17 20:36; Admin Dose 3.125 MG; Start 01/29/17 at 10:30 DIAN HOPE MD Jan 30, 2017 20:53
[2017-01-31] VITALS (10 sets, daily range): BP systolic 120–160; BP diastolic 24–84; PULSE 68–88; RESP 17–19
[2017-01-31] MEDS: ACCU-CHEK XX SCH (02:00)
[2017-01-31 07:33] LABS: CALCIUM 9.1 mg/dl (8.4-10.2); CREATININE 1.12 mg/dl (0.44-1.00); POTASSIUM 4.8 mmol/L (3.5-5.1)
[2017-01-31] MEDS: ASPIRIN 81 MG TAB PO SCH (08:24)
[2017-01-31] MEDS: FAMOTIDINE 20 MG TAB PO SCH (08:24)
[2017-01-31] MEDS: CLOPIDOGREL 75 MG TAB PO SCH (08:24)
[2017-01-31] MEDS: INSULIN ASPART [NOVOLOG] 3 ML PEN SC SCH ×3 (08:28→18:05)
--- NOTE | 2017-01-31 15:56 | CONS ---
Date/Time of Note Date/Time of Note DATE: 01/31/17 TIME: 15:54 Assessment/Plan Assessment/Plan Chief Complaint/Hosp Course Inferior STEMI: s/p PCI of occluded prox RCA and mid RCA 01/28. Complicated by distal microembolization with good final results but ABRAHAM 2 flow to distal PLV as well as transient need for dopamine drip. Was on intergilin but was stopped due to groin hematoma. Pt is asymptomatic and hemodynamically stable off dopamine. 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 No chest pain or shortness of breath. Detailed Summary Additional Comments 14 point review of systems without changes. Exam/Review of Systems Vital Signs Vitals Vital Signs Date Time Temp Pulse Resp B/P Pulse Ox O2 Delivery O2 Flow Rate FiO2 01/31/17 15:49 98.1 82 18 131/78 97 01/29/17 13:00 Room Air 01/29/17 07:00 2.0 Intake and Output 01/30/17 01/30/17 01/31/17 15:00 23:00 07:00 Intake Total 600 ml 600 ml Balance 600 ml 600 ml Exam Constitutional: alert, oriented Psych: nl mood/affect, no complaints Head: atraumatic, normocephalic Neck: jvd (9cm) Respiratory: crackles/rales (mild ), No clear to auscultation Cardiovascular: regular rate and rhythm, No edema, No systolic murmur Gastrointestinal: non-tender, soft, No distended Extremities: other (right groin without hematoma or bruit ) 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: nl mental status, nl speech Results Result Diagram: 01/29/17 1131 01/31/17 0629 Results 24 hrs Laboratory Tests Test 01/30/17 17:26 01/30/17 20:38 01/31/17 02:12 01/31/17 06:29 Bedside Glucose 141 257 H 167 Sodium Level 139 Potassium Level 4.8 Chloride Level 104 Carbon Dioxide Level 32 H Anion Gap 8 Blood Urea Nitrogen 16 Creatinine 1.12 H Glucose Level 159 Calcium Level 9.1 Magnesium Level 2.1 Test 01/31/17 08:21 01/31/17 11:47 Bedside Glucose 149 152 Medications Medications Current Medications Morphine Sulfate (morphine) 2 mg Q2H PRN IV FOR NON CARDIAC PAIN (4-10); Start 01/28/17 at 13:30 Clopidogrel Bisulfate (plaVIX) 75 mg DAILY PO Last administered on 01/31/17 08 :24; Admin Dose 75 MG; Start 01/29/17 at 09:00 Aspirin (Aspirin) 81 mg DAILY PO Last administered on 01/31/17 08:24; Admin Dose 81 MG; Start 01/29/17 at 09:00 Ondansetron HCl (Zofran Inj) 4 mg Q4 PRN IV NAUSEA; Start 01/28/17 at 14:00 Atorvastatin Calcium (Lipitor) 40 mg HS PO Last administered on 01/30/17 20:34 ; Admin Dose 40 MG; Start 01/28/17 at 21:00 Miscellaneous Information 1 ea NOTE XX ; Start 01/28/17 at 17:30 Glucose (Glutose) 15 gm Q15M PRN PO DECREASED GLUCOSE; Start 01/28/17 at 17:30 Glucose (Glutose) 22.5 gm Q15M PRN PO DECREASED GLUCOSE; Start 01/28/17 at 17: 30 Dextrose (D50w Syringe) 25 ml Q15M PRN IV DECREASED GLUCOSE; Start 01/28/17 at 17:30 Dextrose (D50w Syringe) 50 ml Q15M PRN IV DECREASED GLUCOSE; Start 01/28/17 at 17:30 Glucagon (Glucagen) 1 mg Q15M PRN IM DECREASED GLUCOSE; Start 01/28/17 at 17:30 Glucose (Glutose) 15 gm Q15M PRN BUCCAL DECREASED GLUCOSE; Start 01/28/17 at 17 :30 Diagnostic Test (Pha) (Accu-Chek) 1 ea 02 XX Last administered on 01/30/17 03: 23; Admin Dose 1 EA; Start 01/30/17 at 02:00 Famotidine (Pepcid) 20 mg DAILY PO Last administered on 01/31/17 08:24; Admin Dose 20 MG; Start 01/29/17 at 10:00 Carvedilol (Coreg) 3.125 mg BID PO Last administered on 01/31/17 08:24; Admin Dose 3.125 MG; Start 01/29/17 at 10:30 DIAN HOPE MD Jan 31, 2017 15:56
[2017-01-31] MEDS ORDERED: LISINOPRIL 5 MG TAB PO SCH (16:00)
--- NOTE | 2017-01-31 17:03 | PN ---
Date/Time of Note Date/Time of Note DATE: 01/31/17 TIME: 17:03 Assessment/Plan VTE Prophylaxis VTE Prophylaxis Intervention: SCD's Lines/Catheters IV [facility] Saline Lock Urinary Cath still in place: No Assessment/Plan Assessment/Plan 86 yo female with: 1. STEMI, CAD s/p with PCI 01/28 with placement of 2 stents mid and prox RCA, appreciate cardiology recs, remains stable. Continue current antiplatelets, statins, and beta blockers. SANKET inhibitor added. Preserved ejection fraction on 2D echo results Discharge planning within 24 hours per cardiology 2. Hypertension: Continue carvedilol, lisinopril added. 3. Diabetes Mellitus: A1C 6.9, on SSI, will resume outpatient meds at discharge. 4. Hyperlipidemia: continue statins therapy 5. Mild acute kidney injury, resolving, encourage p.o. fluid at home. Prophylaxis: Pepcid for DVT ppx and scds for DVT ppx Disposition: Discharge home today with outpatient PCP and cardiology follow-up. Subjective 24 Hr Interval Summary Free Text/Dictation Patient doing well, no chest pain, no arrhythmias, she is tolerating blood pressure medication fairly well. She will be discharged home today with outpatient cardiology follow-up. Exam/Review of Systems Vital Signs Vitals Vital Signs Date Time Temp Pulse Resp B/P Pulse Ox O2 Delivery O2 Flow Rate FiO2 01/31/17 16:18 71 01/31/17 15:49 98.1 18 131/78 97 01/29/17 13:00 Room Air 01/29/17 07:00 2.0 Intake and Output 01/30/17 01/30/17 01/31/17 15:00 23:00 07:00 Intake Total 600 ml 600 ml Balance 600 ml 600 ml Exam Constitutional: alert, oriented, well developed Respiratory: clear to auscultation, normal air movement Cardiovascular: nl pulses, regular rate and rhythm Gastrointestinal: non-tender, soft Musculoskeletal: nl extremities to inspection, nl gait and stance Extremities: normal pulses, other (No edema, clubbing or cyanosis) 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: 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, nl mental status, nl speech, nl strength Results Result Diagram: 01/29/17 1131 01/31/17 0629 Results 24 hrs Laboratory Tests Test 01/30/17 17:26 01/30/17 20:38 01/31/17 02:12 01/31/17 06:29 Bedside Glucose 141 257 H 167 Sodium Level 139 Potassium Level 4.8 Chloride Level 104 Carbon Dioxide Level 32 H Anion Gap 8 Blood Urea Nitrogen 16 Creatinine 1.12 H Glucose Level 159 Calcium Level 9.1 Magnesium Level 2.1 Test 01/31/17 08:21 01/31/17 11:47 Bedside Glucose 149 152 Medications Medications Current Medications Morphine Sulfate (morphine) 2 mg Q2H PRN IV FOR NON CARDIAC PAIN (4-10); Start 01/28/17 at 13:30 Clopidogrel Bisulfate (plaVIX) 75 mg DAILY PO Last administered on 01/31/17 08 :24; Admin Dose 75 MG; Start 01/29/17 at 09:00 Aspirin (Aspirin) 81 mg DAILY PO Last administered on 01/31/17 08:24; Admin Dose 81 MG; Start 01/29/17 at 09:00 Ondansetron HCl (Zofran Inj) 4 mg Q4 PRN IV NAUSEA; Start 01/28/17 at 14:00 Atorvastatin Calcium (Lipitor) 40 mg HS PO Last administered on 01/30/17 20:34 ; Admin Dose 40 MG; Start 01/28/17 at 21:00 Miscellaneous Information 1 ea NOTE XX ; Start 01/28/17 at 17:30 Glucose (Glutose) 15 gm Q15M PRN PO DECREASED GLUCOSE; Start 01/28/17 at 17:30 Glucose (Glutose) 22.5 gm Q15M PRN PO DECREASED GLUCOSE; Start 01/28/17 at 17: 30 Dextrose (D50w Syringe) 25 ml Q15M PRN IV DECREASED GLUCOSE; Start 01/28/17 at 17:30 Dextrose (D50w Syringe) 50 ml Q15M PRN IV DECREASED GLUCOSE; Start 01/28/17 at 17:30 Glucagon (Glucagen) 1 mg Q15M PRN IM DECREASED GLUCOSE; Start 01/28/17 at 17:30 Glucose (Glutose) 15 gm Q15M PRN BUCCAL DECREASED GLUCOSE; Start 01/28/17 at 17 :30 Diagnostic Test (Pha) (Accu-Chek) 1 ea 02 XX Last administered on 01/30/17 03: 23; Admin Dose 1 EA; Start 01/30/17 at 02:00 Famotidine (Pepcid) 20 mg DAILY PO Last administered on 01/31/17 08:24; Admin Dose 20 MG; Start 01/29/17 at 10:00 Carvedilol (Coreg) 3.125 mg BID PO Last administered on 01/31/17 08:24; Admin Dose 3.125 MG; Start 01/29/17 at 10:30 Lisinopril (Zestril) 2.5 mg DAILY PO ; Start 01/31/17 at 16:00 DAVONTE MANCINI Jan 31, 2017 17:03
--- NOTE | 2017-01-31 17:08 | PDOCDIS ---
Discharge Instructions CONDITION Patient Condition: Good HOME CARE INSTRUCTIONS: Diet Instructions: Low Fat /CholesterolSpecial Diet: No Added Salt diet ACTIVITY: Activity Restrictions: Slowly Increase Activity Avoid heavy lifting Avoid Heavy Housework FOLLOW UP/APPOINTMENTS Follow-up Plan Follow-up with primary care physician within 1 week Follow-up with cardiology within 1-2 weeks OTHER ORDERS: Other Orders: At home OK to resume Amaryl for Diabetes Mellitus DAVONTE MANCINI Jan 31, 2017 17:08
[2017-01-31] MEDS ORDERED: LISI-313 PO (17:14)
[2017-01-31] MEDS ORDERED: CLOP75TA28 PO (17:14)
[2017-01-31] MEDS ORDERED: ATOR40TA68 PO (17:14)
[2017-01-31] MEDS ORDERED: CARV3.1260 PO (17:14)
[2017-01-31] MEDS ORDERED: ASPI81TA3 PO (17:14)
[2017-01-31] MEDS ORDERED: FAMO20TA18 PO (17:14)
--- NOTE | 2017-02-01 11:09 | RADRPT ---
Vent Rate: 71 bpm RR Interval: 0 msec MI Interval: 196 msec QRS Duration: 96 msec QT Interval: 452 msec QTC Interval: 491 msec P-R-T [place]: 77 - 12 - 63 degrees Normal sinus rhythm Inferior infarct , possibly acute Cannot rule out Anterior infarct , age undetermined T wave abnormality, consider lateral ischemia ACUTE IN Consider right ventricular involvement in acute inferior infarct Abnormal ECG Electronically Signed By: Enrique Mejia [id number]
== END 2017-01-31 19:02 | disposition home or self-care (01) | DRG 246 ==
LOC: E/R 12:09 → ICU 13:28 → MS4 17:28
PROVIDERS: ADMIT Internal Medicine; ATTEND Internal Medicine
PROC: B211YZZ Fluoroscopy of Multiple Coronary Arteries using Other Contrast (ICD-10-PCS; 2017-01-28)
PROC: 027035Z Dilation of Coronary Artery, One Artery with Two Drug-eluting Intraluminal Devices, Percutaneous Approach (ICD-10-PCS; principal; 2017-01-28 14:00)
DX: I21.19 ST elevation (STEMI) myocardial infarction involving other coronary artery of inferior wall (principal); I50.21 Acute systolic (congestive) heart failure; N17.9 Acute kidney failure, unspecified; L76.32 Postprocedural hematoma of skin and subcutaneous tissue following other procedure; I11.0 Hypertensive heart disease with heart failure; E78.5 Hyperlipidemia, unspecified; E11.9 Type 2 diabetes mellitus without complications; I25.10 Atherosclerotic heart disease of native coronary artery without angina pectoris; I95.89 Other hypotension; R00.1 Bradycardia, unspecified; Z88.0 Allergy status to penicillin; Y84.0 Cardiac catheterization as the cause of abnormal reaction of the patient, or of later complication, without mention of misadventure at the time of the procedure; Y92.238 Other place in hospital as the place of occurrence of the external cause
CPT/HCPCS: 36415; 71010; 80048; 80053; 80061; 82550; 82553; 82962; 83036; 83735; 84484; 85025; 85610; 85730; 87081; 93005; 93306; 96374; 96375; J1940; C1725; C1760; C1887; C1894; C9606; J0583; J1327; J1644; J1815; J2250; J2405; J3010